=== PATIENT | female | born 1995 | race Caucasian/White ===

== ENCOUNTER 2017-12-15 11:32 | Inpatient (IN) | payer BC ==
[~2017-12-15] VITALS: Ht 157.5 cm; Wt 79.0 kg
[2017-12-15] VITALS (100 sets, daily range): BP systolic 89–141; BP diastolic 55–86; PULSE 55–177; RESP 16–18; TEMP 97.8–98.9
[~2017-12-15 11:32] MED LIST: IBUP-232 PO
[2017-12-15] MEDS: LACTATED RINGER'S 1000 ML INJ 1,000 ML IV SCH (13:27)
[2017-12-15] MEDS ORDERED: LACTATED RINGER'S 1000 ML INJ 1,000 ML IV PRN (13:27)
[2017-12-15] MEDS ORDERED: MINERAL OIL 10 ML VIAL TOPICAL PRN (13:30)
[2017-12-15] MEDS ORDERED: SODIUM CHLORID 0.9% 500 ML INJ 500 ML IV PRN (13:30)
[2017-12-15] MEDS ORDERED: ONDANSETRON ODT 4 MG TAB PO PRN ×2 (13:30→22:30)
[2017-12-15] MEDS ORDERED: LIDOCAINE HCL 1% 50 ML VIAL INFIL PRN (13:30)
[2017-12-15] MEDS ORDERED: CITRIC ACID-SODIUM CITRATE LIQ 30 ML UDC PO SCH (13:30)
[2017-12-15] MEDS ORDERED: LIDOCAINE HCL 1% 50 ML VIAL I-DERMAL PRN (13:30)
[2017-12-15] MEDS ORDERED: OXYTOCIN 30 UNITS-500ML PREMIX 500 ML IV ONE (13:30)
[2017-12-15] MEDS ORDERED: OXYTOCIN 30 UNITS-500ML PREMIX 500 ML IV PRN ×2 (13:30→13:45)
[2017-12-15] MEDS ORDERED: ENTER PATIENT'S HEIGHT AND WEIGHT INTO MEDITECH OTHER SCH (13:30)
[2017-12-15] MEDS ORDERED: SODIUM CHLOR 0.9% 1000 ML INJ 1,000 ML IV PRN (13:47)
[2017-12-15 13:49] LABS: BASOPHIL % 0.3 % (0.0-2.0); EOSINOPHIL % 0.3 % (0.0-4.0); HEMATOCRIT 31.2 % (35.0-46.0); HEMOGLOBIN 10.1 GM/DL (11.6-15.3); LYMPH % 17.7 % (9.0-44.0); LYMPHOCYTE # 1.4 TH/MM3 (1.0-4.8); MEAN CELL VOLUME 82.8 FL (80.0-100.0); MEAN CORPUSCULAR HEMOGLOBIN 26.7 PG (27.0-34.0); MEAN CORPUSCULAR HGB CONC 32.3 % (32.0-36.0); MEAN PLATELET VOLUME 9.9 FL (7.0-11.0); MONO % 8.9 % (0.0-8.0); MONOCYTE # 0.7 TH/MM3 (0-0.9); NEUT % 72.8 % (16.0-70.0); PLATELET COUNT 242 TH/MM3 (150-450); RED BLOOD COUNT 3.77 MIL/MM3 (4.00-5.30); RED CELL DISTRIBUTION WIDTH 15.3 % (11.6-17.2); WHITE BLOOD COUNT 8.2 TH/MM3 (4.0-11.0)
[2017-12-15 14:04] LABS: BACTERIA, URINE RARE /hpf; BILIRUBIN, URINE NEG (NEG); BLOOD, URINE NEG (NEG); GLUCOSE,URINE NEG (NEG); KETONE, URINE NEG (NEG); NITRITE,URINE NEG (NEG); SQUAMOUS EPITHELIAL CELL URINE 4 /hpf (0-5); URINE COLOR YELLOW (YELLW/STRAW); URINE LEUKOCYTE ESTERASE NEG (NEG)
--- NOTE | 2017-12-15 14:36 | MH ---
cc: Danielle Abbasi MD DATE OF ADMISSION: 12/15/2017 HISTORY OF PRESENT ILLNESS: She is 22 years old, 2, para 1, intrauterine at 40 weeks, 3 days. Seen in the office today with an AIDA of 2 cm. Biophysical profile 4/8 and pericardial fluid at 4 mm. care has been with [facility]. Group B Strep was negative. GCT was normal. On anatomy scan, she did have an echogenic intracardiac focus in the left ventricle at 20 weeks, but this resolved on subsequent ultrasounds. PAST OB HISTORY: Significant for vaginal delivery, 7 pounds, 12 ounces, in 2016. PAST GYNECOLOGIC HISTORY: She had a normal Pap smear in May of 2017. PAST MEDICAL HISTORY: She denies hypertension, diabetes, or asthma. PAST SURGICAL HISTORY:. She denies. MEDICATIONS: vitamins. ALLERGIES: SHE HAS NO KNOWN DRUG ALLERGIES. PHYSICAL EXAMINATION: VITAL SIGNS: Stable. She is afebrile. Blood pressure 110/62. She is 180 pounds. HEAD, HEART, CHEST, LUNGS: Exams are within normal limits. ABDOMEN: Soft, nontender, gravid. PELVIC EXAM: 2-3 cm, 50% effaced, posterior. EXTREMITIES: No edema, cyanosis or clubbing. ASSESSMENT AND PLAN: She is 22 years old , 2, para 1, intrauterine at 40 and 3/7 weeks, post-dates, oligohydramnios, biophysical profile 4/8, pericardial effusion in the fetus. Risks, benefits, alternatives of induction of labor have been explained. All of her questions have been answered. Pitocin orders have been entered. MD ALOK Gordon/ARACELI , 02:24 PM , 02:35 PM
[2017-12-15] MEDS ORDERED: fentaNYL 2MCG-BUPIV 0.125% INJ 150 ML EPIDURAL ONE (15:37)
[2017-12-15] MEDS ORDERED: ePHEDrine/NS 25 MG/5 ML SYRINGE ONE (15:37)
[2017-12-15] MEDS ORDERED: DIPHTH/TETANUS/ACEL PERTUSSIS (BOOSTER) 0.5 ML VIAL/PFS IM ONE (16:00)
[2017-12-15] MEDS ORDERED: MEASLES, MUMPS, RUBELLA VACCINE 0.5 ML VIAL SQ ONE (16:00)
--- NOTE | 2017-12-15 22:18 | HHI.PR ---
Subjective Remarks [facility] Attending Called to patient's room for imminent delivery with Dr. Griffin in OR. Patient with spontaneous maternal expulsive efforts with subsequent atraumatic delivery of head followed by atraumatic and spontaneous delivery of anterior shoulder and remainder of . The was placed on the maternal abdomen and was vigorous at delivery. The cord was doubly clamped and cut after a >45 second delay. Cord blood was obtained for the nursery and the placenta delivered spontaneously. The placenta appeared intact. There was a superficial laceration at the inferior edge of the vagina that was reapproximated with a [id number] vicryl 3-0 with excellent cosmesis and hemostasis. There was a small, 1cm right labial laceration perpendicular to the labia that was reapproximated with Vicryl 3-0 in an interrupted fashion for cosmesis with excellent cosmesis noted. Apgars 9/9. EBP 150. Dr. Griffin presented and assumed care for the patient. Objective Vital Signs Date Time Temp Pulse Resp B/P (MAP) Pulse Ox O2 Delivery O2 Flow Rate FiO2 12/15/17 22:00 96 12/15/17 21:30 142 121/68 (85) 12/15/17 21:30 177 12/15/17 21:20 94 12/15/17 21:15 96 12/15/17 21:10 92 12/15/17 21:05 89 12/15/17 21:04 87 18 104/55 (71) 12/15/17 21:01 118 12/15/17 21:00 97 12/15/17 20:30 107 12/15/17 20:30 77 122/84 (97) 12/15/17 20:06 97.8 16 12/15/17 20:05 90 12/15/17 20:01 67 115/70 (85) 12/15/17 20:00 72 12/15/17 19:43 18 12/15/17 19:40 94 12/15/17 19:35 100 12/15/17 19:30 103 12/15/17 19:30 104 124/81 (95) 12/15/17 19:13 18 12/15/17 19:10 103 12/15/17 19:05 99 12/15/17 19:01 88 131/76 (94) 6/27/18 19:00 84 12/15/17 18:31 76 125/79 (94) 12/15/17 18:30 104 12/15/17 18:25 88 12/15/17 18:20 95 12/15/17 18:15 77 12/15/17 18:10 107 12/15/17 18:05 86 12/15/17 18:01 79 129/78 (95) 12/15/17 18:00 83 12/15/17 18:00 18 12/15/17 17:55 104 12/15/17 17:53 98.9 12/15/17 17:50 92 12/15/17 17:45 71 12/15/17 17:40 76 12/15/17 17:35 79 12/15/17 17:30 86 12/15/17 17:30 84 120/76 (91) 12/15/17 17:30 95 12/15/17 17:25 93 12/15/17 17:25 100 12/15/17 17:20 81 12/15/17 17:20 81 12/15/17 17:15 69 12/15/17 17:15 67 12/15/17 17:10 67 12/15/17 17:10 65 12/15/17 17:05 69 120/63 (82) 12/15/17 17:05 61 12/15/17 17:05 68 12/15/17 17:00 92 89/62 (71) 12/15/17 17:00 98 12/15/17 17:00 98 12/15/17 16:40 98 101/73 (82) 12/15/17 16:40 100 12/15/17 16:40 110 12/15/17 16:35 80 106/71 (83) 12/15/17 16:35 120 12/15/17 16:35 85 12/15/17 16:30 81 12/15/17 16:30 78 12/15/17 16:30 80 118/72 (87) 12/15/17 16:25 90 113/77 (89) 12/15/17 16:25 82 12/15/17 16:25 99 18 16:20 82 18 16:20 87 12/15/17 16:20 80 117/70 (86) 12/15/17 16:16 84 126/75 (92) 12/15/17 16:15 89 12/15/17 16:15 90 12/15/17 16:10 109 12/15/17 16:10 109 12/15/17 16:07 18 12/15/17 16:07 98.1 12/15/17 16:05 83 12/15/17 16:05 84 12/15/17 16:00 94 12/15/17 16:00 102 12/15/17 16:00 92 132/81 (98) 12/15/17 15:55 102 12/15/17 15:55 104 12/15/17 15:50 96 12/15/17 15:50 98 12/15/17 15:49 92 141/86 (104) 12/15/17 15:45 88 12/15/17 15:40 71 12/15/17 15:35 71 12/15/17 15:30 88 12/15/17 15:25 100 12/15/17 15:20 66 12/15/17 15:15 82 12/15/17 15:10 82 12/15/17 15:05 55 12/15/17 15:00 91 12/15/17 14:57 69 121/67 (85) 12/15/17 14:55 81 12/15/17 14:50 81 12/15/17 14:45 82 12/15/17 14:40 85 12/15/17 14:35 95 12/15/17 14:30 85 12/15/17 14:20 92 12/15/17 14:15 86 12/15/17 14:10 87 12/15/17 14:05 82 12/15/17 14:00 74 12/15/17 13:55 84 12/15/17 13:50 75 12/15/17 13:45 74 12/15/17 13:40 77 12/15/17 13:35 82 12/15/17 13:30 113 12/15/17 13:25 78 12/15/17 13:20 79 Result Diagram: 12/15/17 1219 Daniela Conway MD Dec 15, 2017 22:18
[2017-12-15] MEDS ORDERED: ACETAMINOPHEN 325 MG TAB PO PRN (22:30)
[2017-12-15] MEDS ORDERED: ALUMINUM/MAGNESIUM/SIMETH 30 ML CUP PO PRN (22:30)
[2017-12-15] MEDS ORDERED: OXYTOCIN 10 UNIT/ML AMP XX PRN (22:30)
[2017-12-15] MEDS ORDERED: BENZOCAINE 20% TOPICAL SPRAY 60 ML CAN TOPICAL PRN (22:30)
[2017-12-15] MEDS ORDERED: WITCH HAZEL 50%/GLYCERIN 12.5% 40 PAD JAR TOPICAL PRN (22:30)
[2017-12-15] MEDS ORDERED: OXYTOCIN 30 UNITS-500ML PREMIX 500 ML IV SCH (22:30)
[2017-12-15] MEDS ORDERED: SODIUM CHLORIDE 0.9% FLUSH 10 ML FLUSH IV FLUSH PRN (22:30)
[2017-12-15] MEDS: SODIUM CHLORIDE 0.9% FLUSH 10 ML FLUSH IV FLUSH SCH (22:30)
[2017-12-15] MEDS ORDERED: ZOLPIDEM TARTRATE 5 MG TAB PO PRN (22:30)
[2017-12-16 00:42] VITALS: BP 139/80; PULSE 62; RESP 18; TEMP 98
[2017-12-16] MEDS: IBUPROFEN 800 MG TAB PO PRN ×3 (00:59→21:05)
[2017-12-16] MEDS ORDERED: IBUP-232 PO (10:08)
--- NOTE | 2017-12-16 10:08 | HHI.DCPOC ---
Discharge Care Plan Diagnosis: (1) Vaginal delivery (2) 40 weeks gestation of Your Health Problems Are: Vaginal delivery Report Symptoms to Your Doctor -Temperature above 100.5 degrees -Redness, of incision or excessive or foul smelling drainage -Unusual pain or calf pain -Increased vaginal bleeding -Painful or difficulty urinating -Feelings of extreme sadness or anxiety after 2 weeks Goals to Promote Your Health * To prevent worsening of your condition and complications * To maintain your health at the optimal level Directions to Meet Your Goals Take your medications as prescribed Follow your dietary instruction Follow activity as directed Ensure plenty of rest for recovery Drink fluids for hydration Keep your appointments as scheduled Take your immunizations and boosters as scheduled If your symptoms worsen call your PCP, if no PCP go to Urgent Care Center or Emergency Room Smoking is Dangerous to Your Health. Avoid second hand smoke Call the 24-hour crisis hotline for domestic abuse at Jake Eastman MD Dec 16, 2017 10:08
--- NOTE | 2017-12-16 10:10 | HHI.OB ---
Subjective Post Day: 1 Remarks Doing well, pain controlled, vaginal bleeding less than menses, no complaints. Objective Vitals/I&O Vital Signs Date Time Temp Pulse Resp B/P (MAP) Pulse Ox O2 Delivery O2 Flow Rate FiO2 12/16/17 00:42 98.0 62 18 139/80 (99) 12/15/17 23:45 18 12/15/17 23:30 96 131/82 (98) 12/15/17 23:15 18 12/15/17 23:01 81 132/78 (96) 12/15/17 23:00 18 12/15/17 22:45 90 120/77 (91) 12/15/17 22:30 85 125/71 (89) 12/15/17 22:27 18 12/15/17 22:16 105 127/81 (96) 12/15/17 22:15 107 129/81 (97) 12/15/17 22:10 98.6 12/15/17 22:10 18 12/15/17 22:00 96 12/15/17 21:30 142 121/68 (85) 12/15/17 21:30 177 12/15/17 21:20 94 12/15/17 21:15 96 12/15/17 21:10 92 12/15/17 21:05 89 12/15/17 21:04 87 18 104/55 (71) 12/15/17 21:01 118 12/15/17 21:00 97 12/15/17 20:30 107 12/15/17 20:30 77 122/84 (97) 12/15/17 20:06 97.8 16 12/15/17 20:05 90 12/15/17 20:01 67 115/70 (85) 12/15/17 20:00 72 12/15/17 19:43 18 12/15/17 19:40 94 12/15/17 19:35 100 12/15/17 19:30 103 12/15/17 19:30 104 124/81 (95) 12/15/17 19:13 18 12/15/17 19:10 103 12/15/17 19:05 99 12/15/17 19:01 88 131/76 (94) 12/15/17 19:00 84 12/15/17 18:31 76 125/79 (94) 12/15/17 18:30 104 12/15/17 18:25 88 12/15/17 18:20 95 12/15/17 18:15 77 12/15/17 18:10 107 12/15/17 18:05 86 12/15/17 18:01 79 129/78 (95) 12/15/17 18:00 83 12/15/17 18:00 18 12/15/17 17:55 104 12/15/17 17:53 98.9 12/15/17 17:50 92 12/15/17 17:45 71 12/15/17 17:40 76 12/15/17 17:35 79 12/15/17 17:30 86 12/15/17 17:30 84 120/76 (91) 12/15/17 17:30 95 12/15/17 17:25 93 12/15/17 17:25 100 12/15/17 17:20 81 12/15/17 17:20 81 12/15/17 17:15 69 12/15/17 17:15 67 12/15/17 17:10 67 12/15/17 17:10 65 12/15/17 17:05 69 120/63 (82) 12/15/17 17:05 61 12/15/17 17:05 68 12/15/17 17:00 92 89/62 (71) 12/15/17 17:00 98 12/15/17 17:00 98 12/15/17 16:40 98 101/73 (82) 12/15/17 16:40 100 12/15/17 16:40 110 12/15/17 16:35 80 106/71 (83) 12/15/17 16:35 120 12/15/17 16:35 85 12/15/17 16:30 81 12/15/17 16:30 78 12/15/17 16:30 80 118/72 (87) 12/15/17 16:25 90 113/77 (89) 12/15/17 16:25 82 18 16:25 99 12/15/17 16:20 82 18 16:20 87 12/15/17 16:20 80 117/70 (86) 12/15/17 16:16 84 126/75 (92) 12/15/17 16:15 89 12/15/17 16:15 90 12/15/17 16:10 109 12/15/17 16:10 109 12/15/17 16:07 18 12/15/17 16:07 98.1 12/15/17 16:05 83 12/15/17 16:05 84 12/15/17 16:00 94 12/15/17 16:00 102 12/15/17 16:00 92 132/81 (98) 12/15/17 15:55 102 12/15/17 15:55 104 12/15/17 15:50 96 12/15/17 15:50 98 12/15/17 15:49 92 141/86 (104) 12/15/17 15:45 88 12/15/17 15:40 71 12/15/17 15:35 71 12/15/17 15:30 88 12/15/17 15:25 100 12/15/17 15:20 66 12/15/17 15:15 82 12/15/17 15:10 82 12/15/17 15:05 55 12/15/17 15:00 91 12/15/17 14:57 69 121/67 (85) 12/15/17 14:55 81 12/15/17 14:50 81 12/15/17 14:45 82 12/15/17 14:40 85 12/15/17 14:35 95 12/15/17 14:30 85 12/15/17 14:20 92 12/15/17 14:15 86 12/15/17 14:10 87 12/15/17 14:05 82 12/15/17 14:00 74 12/15/17 13:55 84 12/15/17 13:50 75 12/15/17 13:45 74 12/15/17 13:40 77 12/15/17 13:35 82 12/15/17 13:30 113 12/15/17 13:25 78 12/15/17 13:20 79 Objective Remarks GENERAL: Well-nourished, well-developed patient. CARDIOVASCULAR: Regular rate and rhythm without murmurs, gallops, or rubs. RESPIRATORY: Breath sounds equal bilaterally. No accessory muscle use. ABDOMEN/GI: Abdomen soft, non-tender. Fundus: Firm, non-tender at umbilicus. GENITOURINARY: Light to moderate bleeding. EXTREMITIES: No cyanosis or edema, non-tender, without signs of DVT. Medications and IVs Current Medications Medications (Trade) Dose Ordered Sig/Tung Route Start Time Stop Time Status Last Admin Lactated Ringer's 1,000 ml @ 125 mls/hr Q8H IV 12/15/17 13:27 12/15/17 13:27 Lactated Ringer's 1,000 ml @ 3,000 mls/hr Q20M PRN IV 12/15/17 13:27 Sodium Chloride 500 ml @ 1,000 mls/hr ONCE PRN IV 12/15/17 13:30 12/16/17 13:29 Sodium Chloride 1,000 ml @ 100 mls/hr Q10H PRN IV 12/15/17 13:47 (Xylocaine 1% Inj (50 ml)) 0.1 ml UNSCH X1 PRN I-DERMAL 12/15/17 13:30 12/18/17 13:29 (Bicitra Liq) 30 ml [employer] PO 12/15/17 13:30 12/19/17 13:29 (Zofran Odt) 4 mg Q6H PRN PO 12/15/17 13:30 (fentaNYL INJ) 50 mcg Q1H PRN IV PUSH 12/15/17 13:30 (fentaNYL INJ) 100 mcg Q1H PRN IV PUSH 12/15/17 13:30 (Xylocaine 1% Inj (50 ml)) 10 ml UNSCH X1 PRN INFIL 12/15/17 13:30 12/17/17 13:29 (Muri-Lube Oil) 10 ml UNSCH PRN TOPICAL 12/15/17 13:30 Oxytocin 500 ml @ 0 mls/hr TITRATE PRN IV 12/15/17 13:45 12/15/17 16:12 ([facility] [place] Nursing Information) ENTER PATIENT'S HEIGHT ... Q15M OTHER 12/15/17 13:30 (Pitocin Inj) 20 units UNSCH X1 PRN XX 12/15/17 22:30 12/16/17 22:29 (NS Flush) 2 ml BID IV FLUSH 12/15/17 22:30 (NS Flush) 2 ml UNSCH PRN IV FLUSH 12/15/17 22:30 (Tylenol) 650 mg Q4H PRN PO 12/15/17 22:30 (Motrin) 800 mg Q8H PRN PO 12/15/17 22:30 12/16/17 00:59 (Americaine 20% Top Spr) 1 spray Q4H PRN TOPICAL 12/15/17 22:30 12/16/17 00:59 (Tucks Pads) 1 applic QID PRN TOPICAL 12/15/17 22:30 12/16/17 00:59 (Amira-Colace) 2 tab Q12H PRN PO 12/15/17 22:30 (Ambien) 5 mg HS PRN PO 12/15/17 22:30 (Mag-Al Plus Susp Liq) 15 ml Q8H PRN PO 12/15/17 22:30 (Zofran Odt) 4 mg Q6H PRN PO 12/15/17 22:30 Assessment/Plan Assessment and Plan 22-year-old 00 to status post at 40 weeks and 3 days. 1. day #1: Doing well, continue routine care, anticipate discharge home in the next 24 hours, discussed expectations, precautions and follow-up. -Female . Jake Eastman MD Dec 16, 2017 10:10
[2017-12-16] MEDS: DOCUSATE SODIUM 50 MG/SENNA 8.6 MG TAB PO PRN (19:37)
[2017-12-16 20:00] VITALS: BP 121/78; PULSE 93; RESP 18; TEMP 98.5; O2SAT 95
[2017-12-17] MEDS: IBUPROFEN 800 MG TAB PO PRN (04:50)
[2017-12-17 08:00] VITALS: BP 131/82; PULSE 74; RESP 20; TEMP 97.8; O2SAT 99
--- NOTE | 2017-12-17 08:19 | HHI.OB ---
Subjective Post Day: 2 Remarks doing well, desires to go home, mod lochia Objective Vitals/I&O Vital Signs Date Time Temp Pulse Resp B/P (MAP) Pulse Ox O2 Delivery O2 Flow Rate FiO2 12/16/17 20:00 98.5 12/16/17 20:00 93 18 121/78 (92) 95 Objective Remarks GENERAL: Well-nourished, well-developed patient. CARDIOVASCULAR: Regular rate and rhythm without murmurs, gallops, or rubs. RESPIRATORY: Breath sounds equal bilaterally. No accessory muscle use. ABDOMEN/GI: Abdomen soft, non-tender. Fundus: Firm, non-tender at umbilicus. GENITOURINARY: Light to moderate bleeding. EXTREMITIES: No cyanosis or edema, non-tender, without signs of DVT. Medications and IVs Current Medications Medications (Trade) Dose Ordered Sig/Tung Route Start Time Stop Time Status Last Admin Lactated Ringer's 1,000 ml @ 125 mls/hr Q8H IV 12/15/17 13:27 12/15/17 13:27 Lactated Ringer's 1,000 ml @ 3,000 mls/hr Q20M PRN IV 12/15/17 13:27 Sodium Chloride 1,000 ml @ 100 mls/hr Q10H PRN IV 12/15/17 13:47 (Xylocaine 1% Inj (50 ml)) 0.1 ml UNSCH X1 PRN I-DERMAL 12/15/17 13:30 12/18/17 13:29 (Bicitra Liq) 30 ml ME[employer] P[employer]ER PO 12/15/17 13:30 12/19/17 13:29 (Zofran Odt) 4 mg Q6H PRN PO 12/15/17 13:30 (fentaNYL INJ) 50 mcg Q1H PRN IV PUSH 12/15/17 13:30 (fentaNYL INJ) 100 mcg Q1H PRN IV PUSH 12/15/17 13:30 (Xylocaine 1% Inj (50 ml)) 10 ml UNSCH X1 PRN INFIL 12/15/17 13:30 12/17/17 13:29 (Muri-Lube Oil) 10 ml UNSCH PRN TOPICAL 12/15/17 13:30 Oxytocin 500 ml @ 0 mls/hr TITRATE PRN IV 12/15/17 13:45 12/15/17 16:12 ([facility] [place] Nursing Information) ENTER PATIENT'S HEIGHT ... Q15M OTHER 12/15/17 13:30 (NS Flush) 2 ml BID IV FLUSH 12/15/17 22:30 (NS Flush) 2 ml UNSCH PRN IV FLUSH 12/15/17 22:30 (Tylenol) 650 mg Q4H PRN PO 12/15/17 22:30 (Motrin) 800 mg Q8H PRN PO 12/15/17 22:30 12/17/17 04:50 (Americaine 20% Top Spr) 1 spray Q4H PRN TOPICAL 12/15/17 22:30 12/16/17 00:59 (Tucks Pads) 1 applic QID PRN TOPICAL 12/15/17 22:30 12/16/17 00:59 (Amira-Colace) 2 tab Q12H PRN PO 12/15/17 22:30 12/16/17 19:37 (Ambien) 5 mg HS PRN PO 12/15/17 22:30 (Mag-Al Plus Susp Liq) 15 ml Q8H PRN PO 12/15/17 22:30 (Zofran Odt) 4 mg Q6H PRN PO 12/15/17 22:30 Assessment/Plan Assessment and Plan 22-year-old 00 to status post at 40 weeks and 3 days. 1. day #2: Doing well, continue routine care, anticipate discharge home today, discussed expectations, precautions and follow- up. -Female . Jesika Still MD Dec 17, 2017 08:19
[2017-12-17] MEDS: SODIUM CHLORIDE 0.9% FLUSH 10 ML FLUSH IV FLUSH SCH (09:00)
[2017-12-17] MEDS: DOCUSATE SODIUM 50 MG/SENNA 8.6 MG TAB PO PRN (09:39)
[2017-12-17] MEDS: LACTATED RINGER'S 1000 ML INJ 1,000 ML IV SCH (10:28)
== END 2017-12-17 18:29 | disposition home or self-care (01) | DRG 775 ==
LOC: H2EA 11:32 → H1EA 12-16 00:38
PROVIDERS: ADMIT Obstetrics & Gynecology; ATTEND Obstetrics & Gynecology
PROC: 10E0XZZ Delivery of Products of Conception, External Approach (ICD-10-PCS; principal; 2017-12-15)
PROC: 0HQ9XZZ Repair Perineum Skin, External Approach (ICD-10-PCS; 2017-12-15)
PROC: 10907ZC Drainage of Amniotic Fluid, Therapeutic from Products of Conception, Via Natural or Artificial Opening (ICD-10-PCS; 2017-12-15)
PROC: 00HU33Z Insertion of Infusion Device into Spinal Canal, Percutaneous Approach (ICD-10-PCS; 2017-12-15)
PROC: 3E0R3BZ Introduction of Anesthetic Agent into Spinal Canal, Percutaneous Approach (ICD-10-PCS; 2017-12-15)
DX: O48.0 Post-term pregnancy (principal); O41.03X0 Oligohydramnios, third trimester, not applicable or unspecified; O70.0 First degree perineal laceration during delivery; Z3A.40 40 weeks gestation of pregnancy; Z37.0 Single live birth; Z23 Encounter for immunization
CPT/HCPCS: 59025; 80307; 81001; 85025; 86900; 86901; G0481; J2590; J7120